=== PATIENT | male | born 1980 | race Caucasian/White ===

== ENCOUNTER 2017-02-15 05:52 | Day surgery (SDC) | payer OTHER ==
[~2017-02-15] VITALS: Ht 170.2 cm; Wt 107.0 kg
[2017-02-15] VITALS (8 sets, daily range): BP systolic 106–130; BP diastolic 71–83; PULSE 66–80; RESP 11–18; O2SAT 94–98
[~2017-02-15 05:52] MED LIST: Lactated Ringer's 1,000 ML IV ONE
[2017-02-15] MEDS ORDERED: Ondansetron 2 mg/mL 2 mL Inj ONE (05:53)
[2017-02-15] MEDS ORDERED: Dexamethasone 4 mg/mL Inj ONE (05:53)
[2017-02-15] MEDS ORDERED: fentaNYL-PF 50 mCg/mL 2 mL Inj ONE (05:53)
[2017-02-15] MEDS ORDERED: Propofol 10,000 mCg/mL 20 mL Inj ONE (05:53)
[2017-02-15] MEDS ORDERED: CeFAZolin 2 Gm/50 mL D5W IV Premix IV ONE (06:00)
[2017-02-15] MEDS ORDERED: CeFAZolin Inj 2 gm / 50mL D5W IV ONE (06:16)
[2017-02-15] MEDS ORDERED: Labetalol 5 mg/mL 4 mL Inj IV PRN (07:15)
[2017-02-15] MEDS ORDERED: Phenylephrine 10,000 mCg/mL Inj IVPUSH PRN (07:15)
[2017-02-15] MEDS ORDERED: Bupivacaine-MPF 0.25% 30 mL Inj INFILTRATE ONE (07:15)
[2017-02-15] MEDS ORDERED: Lactated Ringer's 500 ML IV PRN (07:15)
[2017-02-15] MEDS ORDERED: Lactated Ringer's 1,000 ML IV SCH (07:15)
[2017-02-15] MEDS ORDERED: MetoCLOpramide 5 mg/mL 2 mL Inj IVPUSH PRN (07:15)
[2017-02-15] MEDS ORDERED: HYDROmorphone 1 mg/mL Inj IVPUSH PRN (07:15)
[2017-02-15] MEDS ORDERED: EPHEDrine Sulfate 50 mg/mL Inj IVPUSH PRN (07:15)
[2017-02-15] MEDS ORDERED: Ondansetron 2 mg/mL 2 mL Inj IVPUSH PRN (07:15)
[2017-02-15] MEDS ORDERED: fentaNYL-PF 50 mCg/mL 2 mL Inj IVPUSH PRN (07:15)
[2017-02-15] MEDS ORDERED: Atropine 0.4 mg/mL Inj IVPUSH PRN (07:15)
--- NOTE | 2017-02-15 07:15 | PCM.HPANE ---
Patient Data Surgeon Admitting Provider: Attending Provider:Matt Christina MD Primary Care Physician:Jaylin Other Provider:Christine Liu Anesthesia Reason for Visit Umbilical Hernia Ht/WT & BMI Height (Feet): 5 Height (Inches): 7.00 Weight (Kilograms): 107.0 Body Mass Index 37.00 Allergies Coded Allergies: No Known Allergies (Unverified , 02/08/17) Past Anesthesia History Anesthesia History: Denies:: Anesthesia Reactions, Fam Anesthesia Reaction, Fam Malignant Hypertherm, Malignant Hyperthermia Diabetes History Hx Diabetes?: No MRSA MRSA: No Medications Hypertension Medication: No Home Meds Incl Beta [place]: No No Active Prescriptions or Reported Meds History History of ENT Problems?: Yes HEENT History: Positive for:: Hearing Problem Denies:: Abnormal Airway Cataracts Difficult Intubation Dysphagia Glaucoma Sinus Problem TMJ Denture Type: None Teeth Condition: Within Normal Limits Hx of Heart Problems?: No Cardiovascular History: Denies:: AICD Abdominal Aortic Aneurism Atrial Fibrillation Cardiac Surgery Chest Pain Congestive Heart Failure Coronary Artery Disease Edema Heart Murmur Hypertension Irregular Heartbeat Pacemaker Peripheral Vascular Rheumatic Fever Thrombophlebitis Valvular Heart Disease Hx of Respiratory Problem?: Yes Respiratory History: Denies:: Asthma COPD Chest Surgery Cough Dyspnea Emphysema Hemoptysis Oxygen Administration Pneumonia Pulmonary Embolism Tuberculosis Use of C-PAP Machine (pt snores- has sleep study sched 02/15/17) Use of Inhalers / NEBS Hx Neurologic Problems?: No Neurological History: Denies:: CVA Headaches Multiple Sclerosis Parkinson's Disease Seizures Hx of GI Problems?: Yes Other GI Pertinent History: S/P LT INGUINAL HERNIA RPR Hx of Problems?: No Male Hx: Denies:: Prostate Problems Scrotal Mass Testicular Surgery Skin History: Denies:: History Skin Disorders? Pressure Ulcers Hx Musculoskeletal Problems?: Yes Musculoskeletal History: Positive for:: Back Injury (past hx lumbar back surgery L5-S1) Denies:: Joint Replacement Musculoskeletal Trauma Hx of Psycho/Social Problems?: No Hx Surgeries?: Yes (left ing hernia, lumbar back) Hx Any Other Health Problems?: Yes Other History: Denies:: Cancer Endocrine Disease Hospitalization Thyroid Disease History Blood Transfusions: Denies:: Blood Transfusions Hx Diabetes: No Hx Alcohol Use: YesHx Substance Use: NoHave You Smoked inLast 12 mo: No Stop/Bang S-Snoring: Do You Snore Loudly: Yes T-Tired: feel tired, fatigued: No O-Obsered: Observed not breath: No P-Blood Pressure: treated: No B- Body Mass Index > 35 kg/m2: Yes A- Age over 50: No N- Neck Large Circumference: Yes G- Gender Male: Yes MYAR Total Score: 4 MYRA Risk Assessment: High Risk, =/>3 Yes Risk Assessment Category Category 1A: Patient has history of documented sleep apnea, and HAS NOT received any narcotic, sedative or anesthesia administration during this stay. Category 1B: Patient has history of documented sleep apnea, and HAS received any narcotic , sedative or anesthesia administration during this stay Category 2: Patient has SUSPECTED Obstructive Sleep Apnea, and HAS received any narcotic , sedative or anesthesia administration during this stay. Category 3: Patient has SUSPECTED Obstructive Sleep Apnea and HAS NOT received narcotic, sedative or anesthesia administration during this stay. Category 4: Outpatient in Procedural Areas with known sleep apnea or who screen positive for High Risk via the STOP/BANG questionnaire. Exam Exam Vital Signs Vital Signs Date Time Temp Pulse Resp B/P Pulse Ox O2 Delivery O2 Flow Rate FiO2 02/15/17 06:32 36.6 74 18 125/83 98 Room Air General Appearance: Alert, Oriented X3, Cooperative, No Acute Distress HEENT/AIRWAY: MP 2 Lungs: Clear to Auscultation, Normal Air Movement Heart: Exam Unremarkable, Regular Rate/Rhythm, No Murmurs/Rubs/Gallops Meds/Labs/Diagnostics Admission Meds Current Medications Lactated Ringer's (Lr) 1,000 ml @ 120 mls/hr Q8H20M ONCE IV Last administered on 02/15/17t 06:00; Start 02/15/17 at 05:00; Stop 02/15/17 at 13:19 Plan Impression Patient chart reviewed, patient interviewed and anesthestic plan with risks, benefits, and alternatives discussed, and informed consent obtained. NPO per Anesth. Guidelines: Yes ASA Physical Status: ASA2 Mod Systemic Disease Anesthetic Plan: GA Bene/Risks/Altern/Consents: Yes HP Complete Prior to Induction: Yes Jorge Selby MD February 15, 2017 07:03
--- NOTE | 2017-02-15 08:41 | OP ---
[address] [address] OPERATIVE REPORT PATIENT: VALENTE ORLANDO : 1980 MR#: [id number] ADMIT: 02/15/2017 JOB ID: [id number] DATE OF SURGERY: 02/15/2017 ANESTHESIA: General. PREOPERATIVE DIAGNOSIS(ES): Umbilical hernia. POSTOPERATIVE DIAGNOSIS(ES): Supraumbilical ventral hernia. OPERATION: Open repair of ventral hernia using mesh. SURGEON: Matt Christina MD [employer] WORKER: Donovan Olivo PA-C (the fleet assistant was required for the safe and timely completion of the case). COMPLICATIONS: None. ESTIMATED BLOOD LOSS: Less than 5 mL. CONDITION: Satisfactory. SPECIMEN: None. FINDINGS: There is an approximately 1.5 cm fascial defect which was repaired with a 4.3 cm Ventralex mesh in underlay fashion. The defect was located 1 cm or so above the umbilicus. INDICATION/SIGNIFICANT HISTORY: The patient is a 36-year-old man who is often lifting something heavy at work and noticed some discomfort in his supraumbilical area. He subsequently coughed and noticed a bulge. This had been becoming increasingly symptomatic and, therefore, he elected to undergo repair. OPERATIVE TECHNIQUE: The patient was taken to the operating room and placed in supine position. General anesthesia was administered and perioperative antibiotics were given. The abdomen was prepped and draped in standard surgical fashion. A procedure pause performed. A curvilinear infraumbilical incision was made. Dissection carried down through skin and subcutaneous tissue. The umbilical stalk was circumferentially dissected free and then transected. After transit in the umbilicus, I was able to palpate the fascial defect 1 cm or so above this. There was a moderate sized hernia sac. The hernia sac was freed up from the surrounding tissue and then reduced. A 4.3 cm Ventralex patch was then placed through the defect into the underlay position. This was sutured in place with 0 Prolene sutures with a horizontal closure. The umbilicus was then tacked down to the fascia using a 3-0 PDS suture, 0 PDS deep dermal was placed, followed by a running 4-0 Monocryl. Local anesthetic was injected. Dressing was then applied. The case was concluded. The entire procedure was well tolerated without complication.
--- NOTE | 2017-02-15 08:42 | PCM.ANEP1 ---
Post Anesthesia PACU Phase 1 Assessment Vital Signs Vital Signs Date Time Temp Pulse Resp B/P Pulse Ox O2 Delivery O2 Flow Rate FiO2 02/15/17 08:35 69 14 106/77 97 Nasal Cannula 4 02/15/17 08:30 36.5 69 11 109/79 96 Nasal Cannula 4 02/15/17 08:26 36.5 71 11 107/75 94 Nasal Cannula 4 02/15/17 06:32 36.6 74 18 125/83 98 Room Air Anesthetic Administered: GA Level of Alertness: Awake, talking LYNCH's with Equal Strength: Yes Pain: No Nausea or Vomiting: No CV Function and Hydration: Yes Airway Device: Endotrachial Tube Oxygen Delivery: Nasal Cannula Lungs: Clear to Auscultation, Normal Air Movement PACU Phase 2 Assessment Complications: No Follow up Care: N/A Patient Instructions Provided: N/A Jorge Selby MD February 15, 2017 08:42
== END 2017-02-15 23:59 | disposition home or self-care (01) ==
LOC: SAS 05:52
PROVIDERS: ATTEND General Practice
DX: K43.9 Ventral hernia without obstruction or gangrene (principal); G47.33 Obstructive sleep apnea (adult) (pediatric); F17.220 Nicotine dependence, chewing tobacco, uncomplicated
CPT/HCPCS: 49560; 49568; C1781; J0690; J1100; J2405; J3010; J7120